=== PATIENT | female | born 1975 | race Caucasian/White ===

== ENCOUNTER 2018-01-26 15:07 | Outpatient (CLI) | payer OTHER ==
[2018-01-26 16:45] LABS: Hemoglobin 15.2 g/dL (12.0-16.0); Mean Corpuscular HGB CONC 33.2 g/dL (32.0-36.0); Mean Corpuscular Hemoglobin 29.1 pg (27.0-31.0); Mean Corpuscular Volume 87.7 fl (81.0-99.0); Mean Platelet Volume 8.2 fL (7.4-10.4); Platelet Count 196 thou/uL (130-400); RBC Distribution Width 12.8 % (11.5-14.5); Red Blood Cell (RBC) Count 5.22 mill/uL (4.20-5.40); White Blood Cell (WBC) Count 8.7 thou/uL (4.8-10.8)
[2018-01-26 17:39] LABS: BHCG - Serum Negative (NEGATIVE); Pregs Control Background? CLEAR/WHITE (CLR/WHITE); Pregs Control Bar Appear? YES (CONTROL BAR)
== END 2018-01-26 15:08 | disposition home or self-care (01) ==
LOC: LABBT 15:07
PROVIDERS: ATTEND Obstetrics & Gynecology
DX: Z01.812 Encounter for preprocedural laboratory examination (principal); D25.9 Leiomyoma of uterus, unspecified; N92.0 Excessive and frequent menstruation with regular cycle
CPT/HCPCS: 84703; 85027; 86850; 86900; 86901

== ENCOUNTER 2018-01-30 07:30 | Day surgery (SDC) | payer OTHER ==
[2018-01-26 15:21] VITALS: BMI 35.1
[2018-01-30] MEDS ORDERED: CEFAZOLIN/Water 2 GM/20 ML SYRINGE ONE (08:07)
[2018-01-30] MEDS ORDERED: Gabapentin 300 MG CAP ONE (08:07)
[2018-01-30] MEDS ORDERED: Famotidine/PF 20 mg/2ml Vial ONE (08:07)
[2018-01-30] MEDS ORDERED: CeleCOXIB 100 MG CAP ONE (08:07)
[2018-01-30] MEDS ORDERED: Midazolam HCl 2 mg/2 ml Vial ONE ×2 (08:44→09:59)
--- NOTE | 2018-01-30 09:23 | HP ---
PREOPERATIVE DIAGNOSIS: Menorrhagia, irregular cycle fibroid uterus, left lower quadrant pain. PROCEDURE TO BE PERFORMED: Robotic assisted total laparoscopic hysterectomy with left salpingo-oopho rectomy and right salpingectomy. HISTORY OF PRESENT ILLNESS: Ms. Carli Vail is a 42-year-old G4, P5, who was referred to me for irregular cycles and heavy periods with known fibroid uterus as well as a history of left lower quad rant pain and recurring left adnexal cyst. The patient gives a long history approximately 6 years si nce the of her twins very heavy periods. The patient wears two pants at a time because the tampon will still soak through every hour. The patient reports that her bleeding is disrupted at wo rk and she has to take many breaks. She has a history of always passing blood clots and feeling very tired on her menses. The patient had an ultrasound prior to her consult with me uterus of approxima tely 12 cm with 2 fibroids in the left adnexal mass noted on the left ovary. The patient has tried m edical management in the past and now presents requesting definitive surgical management. PAST MEDICAL HISTORY: Asthma. CURRENT MEDICATION: Albuterol sulfate inhaler as needed. FAMILY HISTORY: Significant for diabetes and hypertension. SOCIAL HISTORY: Significant for smoking 1-1/2 packs of cigarettes a day for 13 years. PAST SURGICAL HISTORY: Significant for , bilateral tubal ligation, orthopedic surgery on he r hand and knee. GYNECOLOGIC HISTORY: Significant for LMP of 01/02/2018 with heavy flow and painful menstrual cramps. OBSTETRICAL HISTORY: Significant for 6 pregnancies including 3 vaginal deliveries and for twins. REVIEW OF SYSTEMS: Negative except as stated in HPI. PHYSICAL EXAMINATION: VITAL SIGNS: Height 5 feet 9 inches, weight 231 pounds, BMI 34, blood pressure 122/80, pulse 73. GENERAL: No acute distress, alert and oriented. LUNGS: Clear to auscultation bilaterally. HEART: Regular rate and rhythm. ABDOMEN: Obese, soft, nontender, no palpable masses, no hepatosplenomegaly. GENITOURINARY: Normal external female genitalia. Normal urethral meatus, normal vaginal mucosa, no vaginal discharge. Normal cervix. No lesions. Uterus with enlarged axial position. No adnexal mas ses appreciated on exam. Perineum is normal. MUSCULOSKELETAL: normal. NEUROLOGIC: Normal. SKIN: Normal. PSYCHIATRIC: Appropriate affect. LABORATORY DATA: Preop hemoglobin in the office 13.5. DIAGNOSTIC STUDIES: Ultrasound on 11/08/2017 with the uterus measuring 12 x 4.5 cm, endometrial stri pe 1.7 cm. Right ovary not visualized, left ovary 4.5 x 3 x 3 cm. Uterine leiomyoma noted to be dis torting endometrial stripe, approximately 3.5 x 2 cm as well as approximately 3 cm posterior subseros al fibroid. Followup ultrasound with normal appearing ovary on 01/26/2018 in the office. ASSESSMENT AND PLAN: Ms. Carli Vail is a 43-year-old multiparous female with a history of tuba l ligation and menometrorrhagia since the of her last children approximately 6 years ago, who h as failed medical management and now desires definitive surgical management for gynecologic problem. The patient also has discussed with me the option for left salpingo-oophorectomy despite having a no rmal appearing ovary on her most recent ultrasound. The patient has a long history of left lower edwardo drant pain in addition to the menorrhagia. The patient has been scheduled for robotic assisted total laparoscopic hysterectomy with left salpingo-oophorectomy and right salpingectomy on 01/30/2018. Sh e understands the risk and benefits are to include, but not limited to bleeding, infection, damage to intraabdominal organs, possible need for emergent laparotomy, inability to fully diagnose and treat all conditions at the time of surgery, possible need for future and medical and/or surgical managemen t. The patient also understands their inherent risk of anesthesia which will be reviewed with her th e day of surgery by the Anesthesia Team. Her questions have been answered to her satisfaction, and s he desires to proceed with the procedure as listed above.
[2018-01-30] MEDS ORDERED: Lidocaine 2% Jelly 5 ML TUBE ONE (09:59)
[2018-01-30] MEDS ORDERED: Fentanyl 250 MCG/5 ML VIAL ONE (09:59)
[2018-01-30] MEDS ORDERED: Bupivacaine HCl 0.5%/Epinephrine 1:200,000/PF 30 ml Vial ONE (10:05)
[2018-01-30] MEDS ORDERED: Albuterol Sulfate HFA (OR ONLY) ONE (10:30)
[2018-01-30] MEDS ORDERED: PROPOFOL 200 MG/20 ML VIAL ONE (10:31)
[2018-01-30] MEDS ORDERED: Ondansetron HCl/PF 4 MG/2 ML Vial ONE (10:31)
[2018-01-30] MEDS ORDERED: Dexamethasone 20 MG/5 ML VIAL ONE (10:31)
[2018-01-30] MEDS ORDERED: Glycopyrrolate 0.2 MG/ML 5 ML SYRINGE ONE (10:31)
[2018-01-30] MEDS ORDERED: Lidocaine 1% PF 5 ML VIAL ONE (10:31)
[2018-01-30] MEDS ORDERED: PROVENTIL INHALER 6.7 G (200 INHALATIONS) ONE (10:31)
[2018-01-30] MEDS ORDERED: Ropivacaine HCl/PF 750 ML in Premix Bag 1 BAG NERVE BLCK SCH (11:00)
[2018-01-30] MEDS ORDERED: Promethazine HCl 25 MG/ML VIAL IM PRN ×2 (12:56→14:50)
[2018-01-30] MEDS ORDERED: Promethazine HCl 25 MG/ML VIAL SLOW IVP PRN (12:56)
[2018-01-30] MEDS ORDERED: Ondansetron HCl/PF 4 MG/2 ML Vial IVP PRN ×2 (12:56→14:50)
[2018-01-30] MEDS ORDERED: Fentanyl 100 MCG/2 ML VIAL ONE ×2 (13:20→13:52)
--- NOTE | 2018-01-30 13:29 | OP ---
DATE OF PROCEDURE: 01/30/2018 PREOPERATIVE DIAGNOSES: Menorrhagia, dysmenorrhea, left lower quadrant pain. POSTOPERATIVE DIAGNOSES: Menorrhagia, dysmenorrhea, left lower quadrant pain. PROCEDURE PERFORMED: Robotic-assisted total laparoscopic hysterectomy with bilateral salpingectomy a nd left oophorectomy and ON-Q pump placement. SURGEON: Meño Singh D.O. FUEL HANDLER: Alisha Collins M.D. ANESTHESIA: GETA per Dr. Barba. COMPLICATIONS: None. ESTIMATED BLOOD LOSS: 100 mL. INTRAOPERATIVE FINDINGS: 1. Uterus sounds to 8 cm. 2. Bulky uterus, suspect adenomyosis. 3. Small posterior fibroid, approximately 2 cm. 4. Normal-appearing right ovary. 5. Left ovary with small ovarian cyst, most likely follicular. PROCEDURE DETAILS: The patient was taken back to the OR with IV fluids running. Once she was in the OR, anesthesia was obtained and the patient was placed in dorsal supine position. Once the patient was asleep, her legs were placed in low dorsal lithotomy and the abdomen and vagina were prepped and draped in normal fashion for gynecologic laparoscopy. The bladder was drained and a Garcia catheter w as left in place with a Brett syringe on the tip of the Garcia for bladder manipulation as needed dur ing the case. An operative speculum was placed into the vagina. The anterior lip of the cervix was visualized and grasped with a single-tooth tenaculum. The uterus was sounded and noted to be approxi mately 8 cm in depth. A ISA Donna manipulator was assembled with a 4 cm cup and an [address] d into the uterus and vagina in normal fashion for manipulation during the case. The tenaculum was r emoved. The surgeon's gloves were changed and attention was turned to the laparoscopic portion of th e case. Beginning at the supraumbilical fold, anesthesia was placed locally underneath the skin. A 12-mm skin incision was made at the supraumbilical fold. A Veress needle was passed through the skin incision into the peritoneal cavity without difficulty and the abdomen was insufflated. Once the ab domen was insufflated, the Veress needle was removed and a 12-mm trocar was placed into the distended abdomen without difficulty. Laparoscope was then placed through this port. The patient was placed in Trendelenburg with the above findings noted. Next, under direct visualization, a right and left l ower quadrant 8 mm ports and a right upper quadrant 11 mm ports were all placed under direct visualiz ation and without difficulty. Once all 4 ports were placed, the robotic arms were docked at the waqas ent's side and attached to the operative ports. Monopolar scissors and bipolar fenestrated grasper w ere placed under direct visualization into the operating field. Surgery began on the patient's left side. The left ureter was identified and noted to be well away from the left IP ligament. The left IP ligament was then cauterized and transected, freeing the left ovary from the pelvis on the patient 's left side. The left fallopian tube was then dissected away from the left adnexa as well using bip olar cautery and fine dissection with monopolar scissors. Next, the round ligament was cauterized an d divided. It was divided into anterior and posterior leaves. The broad ligament was then dissected down towards the level of the uterine artery and was skeletonized. The bladder was back filled with normal saline and the bladder was noted to be well away from the planned colpotomy site. With the b ladder distended, the bladder flap was created and the bladder was then suctioned down to empty and t he bladder was dissected off layer by layer away from the planned colpotomy site with the bladder fla p created and the bladder dissected away. The uterine arteries on the patient's left side were caute rized. Once this was completed, attention was turned to the contralateral. On the right side, the r ight fallopian tube edge was identified, it was grasped, and removed using both bipolar cautery and m onopolar scissors. The fallopian tube segment was removed and sent for pathologic review. Next, the uteroovarian ligament on the patient's right side was cauterized and transected allowing the right o vary to fall away to the patient's right side. The round ligament was then cauterized, transected, a nd divided into anterior and posterior leaves, was taken down and dissected around the level of the u terine artery on the patient's right side. The bladder flap from the patient's right side was comple davi. The bladder was completely dissected away anteriorly from the planned future colpotomy site. T he uterine artery and accessory vessels on the patient's right side were cauterized and transected. Any bleeding encountered was controlled with bipolar cautery. Next, attention was turned to the colp otomy portion of the procedure. The monopolar scissors were used to create the colpotomy along the R KATE colpotomy cup. The colpotomy was completed circumferentially with bipolar cauterization when nee ded for hemostasis. After the colpotomy was completed, the uterine specimen and left ovary specimen were retracted into the vagina for pneumoperitoneum. The surgical pedicles and vaginal cuff were endoscopy technician iously irrigated and any small areas of bleeding were controlled with bipolar cautery. The vaginal c uff was then closed with Stratafix suture from corner to corner in 2 layers. After the vaginal cuff was closed, the surgical pedicles and vaginal cuff were copiously irrigated and suctioned dry. A lay er of Tisseel was placed over the dissection and pedicles. Once this was completed, the ON-Q cathete r tip was placed under direct visualization in the midline. The catheter tip was directed down towar ds the cul-de-sac and primed and noted to be functioning properly. Next, all the instruments were re moved. The gas was released from the abdomen and the trocars were removed as well. The supraumbilic al fascia was closed with Vicryl suture. All 4 skin incisions were closed with Monocryl suture and d ressed with Dermabond dressing. At the end of the case, the vagina was inspected. The vaginal cuff was noted to be hemostatic. A small 0.5 cm vaginal laceration was noted on the right vaginal sidewal l. This laceration was inherent to the procedure and one suture was placed for hemostasis and restor ation of anatomy. At the end of the case, the patient was cleaned, dried, extubated and taken to the recovery room in good condition.
[2018-01-30] MEDS ORDERED: Simethicone Chewable 80 MG TAB PO PRN (14:50)
[2018-01-30] MEDS ORDERED: Acetaminophen/Codeine 30-300mg Tablet PO PRN (14:50)
[2018-01-30] MEDS ORDERED: Zolpidem Tartrate 5 MG TAB PO PRN (14:50)
[2018-01-30] MEDS ORDERED: Bisacodyl 10 MG SUPP PR PRN (14:50)
[2018-01-30] MEDS ORDERED: diphenhydrAMINE 25 MG CAP PO PRN (14:50)
[2018-01-30] MEDS ORDERED: Morphine 5 MG/ML SYRINGE SLOW IVP PRN (15:19)
[2018-01-30] MEDS: Ibuprofen 800 MG TAB PO SCH (15:37)
[2018-01-30] MEDS: Sodium Chloride 0.9% 1,000 ML IV SCH (15:37)
[2018-01-30] MEDS: Ketorolac Tromethamine 30 MG/ML VIAL IVP SCH (16:29)
[2018-01-30] MEDS: Acetaminophen/Codeine 30-300mg Tablet PO PRN (20:31)
[2018-01-31] MEDS: Ketorolac Tromethamine 30 MG/ML VIAL IVP SCH ×2 (00:10→07:16)
[2018-01-31] MEDS: Acetaminophen/Codeine 30-300mg Tablet PO PRN (00:15)
[2018-01-31] MEDS: Ibuprofen 800 MG TAB PO SCH ×2 (00:40→06:18)
[2018-01-31] MEDS: Sodium Chloride 0.9% 1,000 ML IV SCH ×2 (00:42→08:21)
[2018-01-31 06:04] LABS: Hemoglobin 12.9 g/dL (12.0-16.0); Mean Corpuscular HGB CONC 32.9 g/dL (32.0-36.0); Mean Corpuscular Hemoglobin 29.1 pg (27.0-31.0); Mean Corpuscular Volume 88.5 fl (81.0-99.0); Mean Platelet Volume 8.8 fL (7.4-10.4); Platelet Count 179 thou/uL (130-400); RBC Distribution Width 12.7 % (11.5-14.5); Red Blood Cell (RBC) Count 4.42 mill/uL (4.20-5.40); White Blood Cell (WBC) Count 12.7 thou/uL (4.8-10.8)
[2018-01-31 08:40] VITALS: BP 126/74; TEMP 98.4
--- NOTE | 2018-01-31 10:12 | PDOC.EVN ---
Event Note - Event Note Event Note: POD1 S: tolerating regular diet, voiding without difficulty, no N/V, no bleeding O: Vital Signs (12 hours) Temp Pulse Resp BP Pulse Ox 01/31/18 08:39 98.4 F 63 18 126/74 96 01/31/18 08:00 98.1 F 64 16 01/31/18 04:45 98.1 F 64 16 128/80 95 01/31/18 00:05 98.3 F 76 16 128/69 94 L Weight Weight 231 lb NAD A and O nonlabored breathing abd soft, non distended, inc CDI x 4 ext no swelling or Saurabh's Path pending A/P: POD 1 sp RATLH/BS/LO, doing well, post op goals met. Plan to DC home today.
== END 2018-01-31 10:29 | disposition home or self-care (01) ==
LOC: SDC 07:30 → 3SW 13:41 → EDSTATUS 15:00 → 3SE 23:23 → SDC 01-31 10:29
PROVIDERS: ATTEND Obstetrics & Gynecology
PROC: 0UT94ZZ Resection of Uterus, Percutaneous Endoscopic Approach (ICD-10-PCS; principal; 2018-01-30)
PROC: 8E0W4CZ Robotic Assisted Procedure of Trunk Region, Percutaneous Endoscopic Approach (ICD-10-PCS; principal; 2018-01-30)
PROC: 0UT14ZZ Resection of Left Ovary, Percutaneous Endoscopic Approach (ICD-10-PCS; principal; 2018-01-30)
PROC: 0UT74ZZ Resection of Bilateral Fallopian Tubes, Percutaneous Endoscopic Approach (ICD-10-PCS; principal; 2018-01-30)
DX: D25.2 Subserosal leiomyoma of uterus (principal); N72 Inflammatory disease of cervix uteri; J45.909 Unspecified asthma, uncomplicated; F17.210 Nicotine dependence, cigarettes, uncomplicated; Z98.51 Tubal ligation status
CPT/HCPCS: 36415; 85027; 88307; 96374; 96375; 96376; A4216; J0670; J1100; J1885; J2001; J2250; J2405; J2704; J2795; J3010; S0028

== ENCOUNTER 2018-08-03 16:10 | Outpatient (CLI) | payer OTHER ==
[2018-08-03 16:31] LABS: #Eosinphils 0.1 thou/uL (0.0-0.7); #Lymphocytes 1.6 thou/uL (1.20-3.40); #Monocytes 0.4 thou/uL (0.11-0.59); #Neutrophils 5.9 thou/uL (1.40-6.50); %Basophils 0.6 % (0.0-1.0); %Eosinophils 1.8 % (0.0-10.0); %Lymphocytes 19.6 % (21.0-51.0); %Monocytes 4.5 % (0.0-10.0); %Neutrophils 73.5 % (42.0-75.0); Hemoglobin 14.6 g/dL (12.0-16.0); Mean Corpuscular HGB CONC 33.2 g/dL (32.0-36.0); Mean Corpuscular Hemoglobin 28.9 pg (27.0-31.0); Mean Corpuscular Volume 86.9 fL (78.0-98.0); Mean Platelet Volume 8.7 fL (7.4-10.4); Platelet Count 191 thou/uL (130-400); RBC Distribution Width 12.4 % (11.5-14.5); Red Blood Cell (RBC) Count 5.05 mill/uL (4.20-5.40)
[2018-08-03 16:48] LABS: Anion Gap 14 mmol/L (10-20); BUN (Urea Nitrogen) 13 mg/dL (7.0-18.7); Calc. Creatinine Clearance 0 mL/min (70-130); Calcium 9.8 mg/dL (7.8-10.44); Carbon Dioxide 24 mmol/L (22-29); Chloride 105 mmol/L (98-107); Estimated GFR-MDRD 89; Glucose 91 mg/dL (70-105); Sodium 139 mmol/L (136-145)
--- NOTE | 2018-08-03 22:45 | HP ---
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 She does heavy lifting at work. They have tried to keep her from working until she repairs this, but she insisted that she has five children, three at home. She is single. ALLERGIES: NONE. SOCIAL HISTORY: Tobacco pack per day. Alcohol, none. MEDICATIONS: Naproxen p.r.n. PAST SURGICAL HISTORY: Hysterectomy, unilateral salpingo-oophorectomy leaving her left ovary, left knee ACL repair, right hand surgery, C-sections for twins. PAST MEDICAL HISTORY: Noncontributory. PHYSICAL EXAMINATION: VITAL SIGNS: Weight 232 pounds, height 68 inches, blood pressure 128/55, pulse 70, temperature 97.7 degrees. HEAD, EARS, EYES, NOSE, AND THROAT: Unremarkable. Sclerae nonicteric. LUNGS: Clear to auscultation. CARDIAC: Regular rate and rhythm. No murmur or gallop. ABDOMEN: Soft, obese, nontender. Umbilical hernia reducible through a smaller defect. EXTREMITIES: Unremarkable. SKIN: Normal, nonjaundiced. NEUROLOGIC: Intact. EXTREMITIES: Well perfused. No edema. ASSESSMENT: Umbilical hernia. PLAN: Robot laparoscopic mesh repair as an outpatient. She understands the risks, benefits, and consents. Job ID: [id number]
== END 2018-08-03 16:11 | disposition home or self-care (01) ==
LOC: LABBT 16:10
PROVIDERS: ATTEND Specialist
DX: Z01.812 Encounter for preprocedural laboratory examination (principal); K42.9 Umbilical hernia without obstruction or gangrene
CPT/HCPCS: 80048; 85025

== ENCOUNTER 2018-08-09 11:03 | Day surgery (SDC) | payer OTHER ==
[2018-08-03 16:28] VITALS: BMI 35.2
[2018-08-09] MEDS ORDERED: Bupivacaine/Epinephrine 0.25% 30 ML VIAL ONE (13:58)
[2018-08-09] MEDS ORDERED: Ketorolac Tromethamine 30 MG/ML VIAL ONE (14:25)
[2018-08-09] MEDS ORDERED: CEFAZOLIN 2 GM/50 ML BAG ONE (14:25)
[2018-08-09] MEDS ORDERED: Scopolamine 1.5 mg/72 hour Patch ONE (14:26)
[2018-08-09] MEDS ORDERED: Fentanyl 100 MCG/2 ML VIAL ONE ×4 (15:59→17:52)
[2018-08-09] MEDS ORDERED: Meperidine HCl/PF 25 MG/ML VIAL ONE (17:38)
[2018-08-09] MEDS ORDERED: Promethazine HCl 25 MG/ML VIAL ONE (17:47)
[2018-08-09] MEDS ORDERED: Ondansetron PF 4 MG/2 ML Vial ONE (18:16)
[2018-08-09] MEDS ORDERED: Dexamethasone 20 MG/5 ML VIAL ONE (18:16)
[2018-08-09] MEDS ORDERED: PROPOFOL 200 MG/20 ML VIAL ONE (18:16)
[2018-08-09] MEDS ORDERED: Lidocaine 1% PF 5 ML VIAL ONE (18:16)
[2018-08-09] MEDS ORDERED: Glycopyrrolate 0.2 MG/ML 5 ML SYRINGE ONE (18:16)
[2018-08-09] MEDS ORDERED: HYDROcodone/Acetaminophen 5/325 mg Tablet ONE (18:59)
--- NOTE | 2018-08-10 00:09 | OP ---
DATE OF PROCEDURE: 08/09/2018 PREOPERATIVE DIAGNOSIS: Umbilical hernia, symptomatic. POSTOPERATIVE DIAGNOSIS: Umbilical hernia, symptomatic. PROCEDURES PERFORMED: Robot laparoscopic repair of fascial defect with 9 cm round Ventralight mesh, reinforcement of closure. ANESTHESIA: General with local 0.5% Marcaine with epinephrine 30 mL. DESCRIPTION OF PROCEDURE: The patient was taken to the operating room, where under general anesthesia without a Garcia catheter, abdomen was prepared with ChloraPrep and draped in routine fashion. Bilateral far lateral subcostal incision was made and pneumoperitoneum to 15 mmHg was obtained with Veress needle, replaced with an 8 mm port, placed in the contralateral port under laparoscopic visualization. Left subxiphoid incision was made and an 11 mm port was placed with balloon inflated on the port and with a laparoscope robot was inserted, after robot was docked, and robot repair of umbilical hernia undertaken reducing preperitoneal fat, excising it with hot cautery, and scissors. Once this was repaired, the falciform ligament was taken down with robot scissors using cautery for hemostasis. Pneumoperitoneum was reduced to 9 mmHg and mesh 9 cm round, trim from an 11 mm round segment and marked and placed intra-abdominally and secured to the abdominal wall after closing the fascial defect with continuous suture #1 PDS V-Loc. Mesh was secured with circumferential 2-0 PDS V-Loc. Once this was secured, all needles were removed and pneumoperitoneum reduced. All instruments were removed, and all skin incisions were approximated with interrupted subdermal 4-0 Monocryl, and [place] glue applied. Job ID: [id number]
== END 2018-08-09 19:35 | disposition home or self-care (01) ==
LOC: SDC 11:03
PROVIDERS: ATTEND Specialist
PROC: 8E0W4CZ Robotic Assisted Procedure of Trunk Region, Percutaneous Endoscopic Approach (ICD-10-PCS; principal; 2018-08-09)
PROC: 0WUF4JZ Supplement Abdominal Wall with Synthetic Substitute, Percutaneous Endoscopic Approach (ICD-10-PCS; principal; 2018-08-09)
DX: K42.9 Umbilical hernia without obstruction or gangrene (principal); M19.90 Unspecified osteoarthritis, unspecified site; F17.210 Nicotine dependence, cigarettes, uncomplicated
CPT/HCPCS: 96374; C1781; J0131; J1100; J1885; J2001; J2175; J2405; J2550; J2704; J3010

== ENCOUNTER 2019-03-10 18:38 | Emergency (ER) | payer OTHER ==
[2019-03-10] MEDS ORDERED: Ketorolac Tromethamine 30 MG/ML VIAL ONE (19:16)
[2019-03-10] MEDS ORDERED: Ondansetron PF 4 MG/2 ML Vial ONE (19:16)
[2019-03-10 19:21] LABS: #Basophils 0.1 thou/uL (0.0-0.2); #Eosinphils 0.2 thou/uL (0.0-0.7); #Lymphocytes 2.2 thou/uL (1.20-3.40); #Monocytes 0.5 thou/uL (0.11-0.59); #Neutrophils 6.3 thou/uL (1.40-6.50); %Basophils 0.8 % (0.0-1.0); %Eosinophils 1.7 % (0.0-10.0); %Lymphocytes 23.5 % (21.0-51.0); %Monocytes 5.2 % (0.0-10.0); %Neutrophils 68.8 % (42.0-75.0); Hemoglobin 15.5 g/dL (12.0-16.0); Mean Corpuscular HGB CONC 34.2 g/dL (32.0-36.0); Mean Corpuscular Hemoglobin 29.3 pg (27.0-31.0); Mean Corpuscular Volume 85.7 fL (78.0-98.0); Mean Platelet Volume 8.5 fL (7.4-10.4); Platelet Count 203 thou/uL (130-400); RBC Distribution Width 12.4 % (11.5-14.5); Red Blood Cell (RBC) Count 5.27 mill/uL (4.20-5.40); White Blood Cell (WBC) Count 9.2 thou/uL (4.8-10.8)
[2019-03-10 19:33] LABS: Bacteria/HPF None Seen HPF (None Seen); Bilirubin Negative (Negative); Blood, Urine Negative (Negative); Clarity Clear (Clear); Glucose, Urine (Dipstick) Normal (Negative); Leukocyte 25 Leu/uL (Negative); Mucous/LPF 1+ LPF (<2+); Nitrite Negative (Negative); Protein, Urine (Dipstick) Negative (Neg-Trace); RBC/HPF 0-3 HPF (0-3); Squamous Epithelial 0-3 HPF (0-3); Urobilinogen Normal mg/dL (Less than 2)
[2019-03-10 19:42] LABS: ALT (SGPT) 12 U/L (8-55); AST (SGOT) 14 U/L (5-34); Albumin 4.5 g/dL (3.5-5.0); Alkaline Phosphatase 63 U/L (40-150); Anion Gap 14 mmol/L (10-20); BUN (Urea Nitrogen) 8 mg/dL (7.0-18.7); Bilirubin, Total 0.6 mg/dL (0.2-1.2); Calc. Creatinine Clearance 0 mL/min (70-130); Calcium 9.9 mg/dL (7.8-10.44); Carbon Dioxide 21 mmol/L (22-29); Chloride 103 mmol/L (98-107); Estimated GFR-MDRD 87; Globulin 2.9 g/dL (2.4-3.5); Glucose 91 mg/dL (70-105); Potassium 3.8 mmol/L (3.5-5.1); Protein, Total 7.4 g/dL (6.0-8.3); Sodium 134 mmol/L (136-145)
[2019-03-10] MEDS ORDERED: Morphine 4 MG/ML VIAL ONE (19:57)
--- NOTE | 2019-03-10 21:22 | RAD ---
KUB: 03/10/19 INDICATION: Left sided flank pain. COMPARISON: Prior CT of the abdomen and pelvis without contrast dated 03/06/19. FINDINGS: There is bilateral nonobstructing renal calculi again noted. The previously seen proximal left ureter al calculus is not definitely demonstrated on the current examination but may be obscured by overlyin g bowel gas. Bowel gas pattern is unobstructed. Small phleboliths within the lower pelvis are stable. No acute osseous abnormality is evident. IMPRESSION: 1. Stable bilateral nephrolithiasis. 2. Previously seen left proximal ureteral calculus is not definitely identified current radiogra phic evaluation and may be related to interval passage; however, overlying bowel gas can obscure smal l stones. If the patient is having continued left flank pain, further evaluation with a CT of the abd omen utilizing renal calculus protocol is recommended. POS: HERMINIA
== END 2019-03-10 22:00 | disposition home or self-care (01) ==
LOC: ERS 18:38
DX: N13.2 Hydronephrosis with renal and ureteral calculous obstruction (principal); F17.210 Nicotine dependence, cigarettes, uncomplicated
CPT/HCPCS: 36415; 74018; 80053; 81003; 81015; 85025; 87077; 87086; 96361; 96374; 96375; J1885; J2270; J2405

== ENCOUNTER 2019-03-25 01:05 | Inpatient (IN) | payer OTHER ==
[2019-03-25] MEDS ORDERED: Morphine 2 MG/ML SYRINGE IVP PRN (01:54)
[2019-03-25] MEDS ORDERED: Tamsulosin HCl 0.4 MG CAP PO SCH ×2 (02:15→21:00)
[2019-03-25] MEDS ORDERED: HYDROcodone/Acetaminophen 5/325 mg Tablet ONE (02:26)
[2019-03-25 02:55] VITALS: BMI 35.1
[2019-03-25] MEDS: Sodium Chloride 0.9% 1,000 ML IV SCH ×4 (03:02→20:51)
[2019-03-25] MEDS ORDERED: Ondansetron ODT 4 MG TAB PO PRN (09:40)
[2019-03-25] MEDS ORDERED: Bisacodyl 10 MG SUPP PR PRN (09:40)
[2019-03-25] MEDS ORDERED: Calcium Carbonate 500 MG ChewTAB PO PRN (09:40)
[2019-03-25] MEDS ORDERED: Acetaminophen 325 MG TAB PO PRN (09:40)
[2019-03-25] MEDS ORDERED: Ketorolac Tromethamine 30 MG/ML VIAL IVP PRN (09:40)
[2019-03-25] MEDS ORDERED: Ondansetron PF 4 MG/2 ML Vial IVP PRN (09:40)
[2019-03-25] MEDS ORDERED: Nicotine 14 MG PATCH TD PRN (09:48)
--- NOTE | 2019-03-25 10:31 | HP ---
PRIMARY CARE PHYSICIAN: Dr. Stephanie Monzon. CHIEF COMPLAINT: Left flank pain. HISTORY OF PRESENT ILLNESS: The patient is a 44-year-old female with renal calculi in the past, presented to the emergency room with above complaints. Three weeks ago, the patient started having left flank pain that was sharp, [id number] in intensity associated with nausea. She was seen at the emergency room and was found to have 5 to 6 mm calculus in the proximal left ureter with mild left hydronephrosis. She also had bilateral nonobstructing calculi in the upper collecting structure of both the kidneys with medullary sponge kidney. She was sent home on NSAIDs. Five days later, she was seen at this facility for similar complaint. Tylenol No. 3 and Flomax were added at this time. Over the last 1 week, the patient continues to have significant discomfort. The pain got worse, for which she presented to the emergency room last night. She denies any vomiting, fever, or urinary complaints. She had a small amount of blood in the urine intermittently. She has also lost her appetite. PAST MEDICAL HISTORY: 1. History of renal calculi. 2. Degenerative joint disease, mainly in the left knee. PAST SURGICAL HISTORY: 1. Umbilical hernia repair. 2. Hysterectomy. 3. section. 4. Left knee arthroscopic surgery. 5. Right hand skin mass removal. 6. Lithotripsy, 10 to 12 years ago. 7. Cystoscopy with stent placement, 7 to 8 years ago. ALLERGIES: NO KNOWN DRUG ALLERGIES. CURRENT HOME MEDICATIONS: The patient is on Tylenol No. 3, naproxen, and Flomax, which were started recently. She also takes naproxen on an as needed basis for left knee degenerative joint disease. SOCIAL HISTORY: The patient smokes up to half pack a day for last 20 years. She denies any alcohol or drug use. FAMILY HISTORY: Mother with diabetes. Grandmother with lung cancer. REVIEW OF SYSTEMS: All other review of systems was reviewed and were found negative. PHYSICAL EXAMINATION: VITAL SIGNS: Temperature 97.7, respirations 18, pulse rate of 90, blood pressure of 127/79, O2 saturation of 97% on room air. GENERAL: A 44-year-old female, in mild distress due to left flank pain. HEENT: Head, atraumatic and normocephalic. Sclerae are anicteric. Moist mucous membranes. No oral lesion. NECK: Supple. No JVD. No carotid bruit. LUNGS: Clear to auscultation bilaterally. No wheezing, rales, or rhonchi. HEART: S1 and S2 present. Regular rate and rhythm. ABDOMEN: Soft. Bowel sounds are present. There is significant tenderness in the left flank. No rebound or guarding. EXTREMITIES: No edema or calf tenderness. NEUROLOGIC: Grossly nonfocal. Moves all 4 extremities. PSYCHIATRY: Alert, awake, and oriented x3. SKIN: Warm and dry. LYMPH NODES: No palpable lymph nodes in the neck. PERIPHERAL VASCULAR: Radial pulses palpable bilaterally. MUSCULOSKELETAL: No joint swelling or tenderness. LABORATORY FINDINGS: WBC 7.8, hemoglobin 14, hematocrit 42.7, platelet 194. Sodium 141, potassium 3.8, chloride 105, bicarbonate 23, BUN 8, creatinine 0.75. Urinalysis showed 7 to 10 wbc's with 1+ bacteria. test was negative. IMAGING STUDIES: CT scan of the abdomen and pelvis by my review showed 5 to 6 mm calculus at the left ureteropelvic junction with mild left hydronephrosis along with medullary sponge kidney. IMPRESSION: 1. Left flank pain secondary to left ureteropelvic junction calculi with mild left hydronephrosis. 2. Suspected medullary sponge kidney. Primary care physician advised to follow. 3. Degenerative joint disease, mainly in the left knee. 4. History of renal calculi in the past. 5. Chronic kidney disease stage 2. 6. Hematuria secondary to #1. 7. Obesity with a BMI of 35.1. 8. Tobacco dependence. PLAN: The patient will be monitored on the medical floor. We will continue IV fluids along with Flomax. We will add Toradol and morphine as needed. Protonix will be added. Tobacco cessation was emphasized. The patient will be kept n.p.o. Urology will be consulted. We will strain the urine. We will also add urine culture. The patient was advised to follow up with primary care physician regarding medullary sponge kidney. Job ID: [id number]
--- NOTE | 2019-03-25 12:29 | CON ---
DATE OF CONSULTATION: 03/25/2019 REASON FOR CONSULTATION: Left hydronephrosis, history of recurrent kidney stone , failed outpatient treatment. HISTORY OF PRESENT ILLNESS: Ms. Vail is a pleasant 44-year-old female with history of tobacco abuse, history of recurrent kidney stone, multiple ER visits due to left flank pain. The patient presented last night due to nausea and emesis, flank pain 9/10, managed with Tylenol No. 3 as an outpatient. The patient's PCP is Dr. Monzon. She denies history of gross hematuria, dysuria, fever, or malaise. Does relate treatment of kidney stones in [place] and [place]. Does not recall laterally, however, had about 2 kidney stone lithotripsies in the past near 2008. She has also passed multiple kidney stones. Denies prior stone metabolic panel workup. Currently, she is resting comfortably, however, presented due to intractable flank pain rated 9/10 on the pain scale, vital signs stable. Urinalysis was collected demonstrating 1+ bacteria; however, this is a contaminated specimen. CT which I reviewed myself demonstrating bilateral multiple stone burden consistent with nephrocalcinosis, left 6 x 9 mm proximal ureteral stone just distal to the UPJ, left lower pole 9 to 10 mm stone with multiple bilateral renal calcific density per my review at the level of the renal papilla. The patient informed regarding CT findings, n.p.o. and desires to proceed with cysto left stent. PAST MEDICAL HISTORY: Recurrent kidney stones, arthritis, and umbilical hernia. PAST SURGICAL HISTORY: Include left knee replaced at age 28, twins at age 37, excision of hand lesion, cartilage removed at age 38, robotic-assisted total hysterectomy at age 43 [address] Singh, and robotic umbilical hernia repair with mesh by Dr. Monique in July 2018. FAMILY HISTORY: Positive for diabetes, lives with her children. She is a single mother, has a significant other. 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 SOCIAL HISTORY: A 10 pack-year smoking history, has 5 children. MEDICATIONS: At home include: 1. Naproxen. 2. Tylenol No. 3. 3. Flomax. ALLERGIES: NO KNOWN DRUG ALLERGIES. REVIEW OF SYSTEMS: Ten-point review of systems as above, otherwise noncontributory. PHYSICAL EXAMINATION: VITAL SIGNS: Her vital signs in the emergency room as records review are stable. She is afebrile. She is currently 98, 72, 16, 94%, and 116/78. I's and O's; 750 of urine output. GENERAL: The patient appears to be in no acute distress. HEENT: Grossly unremarkable. HEART: Regular rate. LUNGS: Clear. ABDOMEN: Soft. No rigidity. No rebound. Subjective discomfort in the left flank. EXTREMITIES: No cyanosis, clubbing, or edema. PSYCHIATRIC: Appears to be appropriate. Affect normal. NEUROLOGIC: No gross focal deficits appreciated. Pertinent imaging and lab which I reviewed myself. She has multiple CTs dating back in October 2015, had about [address] scan and most recent March 24, 2019. I reviewed the CT myself demonstrating stone nidus seen back in 2015 with some increase in stone burden, CT scan March 06, 2019. Bilateral nephrolithiasis, 6 mm left proximal ureteral stone with mild hydronephrosis. CT demonstrating likely nephrocalcinosis with extensive bilateral renal calculi. CT of the abdomen and pelvis stone protocol on March 24, 2019. Unchanged left UPJ stone measuring 6 mm. Per my review, this measures 6 x 9 mm in craniocaudal dimension with Hounsfield unit over 1000. Bilateral multiple renal calculi, most of which are punctate 3 to 4 mm in size. Most of these in the right kidney are papilla based, largest about 4 to 5 mm. Similarly, there is multiple renal papilla calcific density, however, in the left lower pole, the stone moiety appears to be two stones measuring in total dimensions about 9 x 10 mm. Mild left hydronephrosis is appreciated. Again, consistent with nephrocalcinosis as most of her stones are associated with renal papilla based thus far. PERTINENT LABORATORY AND IMAGING DATA: White count 7.8, hemoglobin 14, platelet 194. Creatinine 0.75, calcium is 9.5, within normal limits. UA is contaminated with 1+ bacteria, 7 to 10 epithelials, no leukocytes, no nitrites, 11 to 20 rbc' s, 7 to 10 wbc's. Urine pH is 6.5. IMPRESSION AND PLAN: 1. Ms. Vail is a pleasant 44-year-old female with history of tobacco abuse. 2. Recurrent kidney stone with prior lithotripsy x2 out of region, presents with persistent left flank pain, failed outpatient treatment. I reviewed the CT multiple myself, I informed the patient regarding CT, lab results. Her calcium is normal , so I do not suspect hyperparathyroidism; however, I informed the patient after convalescence from current surgical intervention and treatment of her stone, the stone metabolic panel will be obtained. Her urine pH is 6.5; therefore, low suspicion for renal tubular acidosis, but certainly metabolic panel at a later date will be performed. Nevertheless, she presents with recurrent pain and failed outpatient treatment, we recommend cysto and left retrograde stent. Elective treatment of her ureteral calculi with extracorporeal shock wave lithotripsy versus ureteroscopy was reviewed with the patient in detail. As her stone Hounsfield unit is greater than 1000 very dense in nature, ureteroscopy, laser lithotripsy be prudent and moreover, I can treat her left UPJ and her lower pole stone concomitantly. Risks and complications of ureteral stent reviewed including bleeding, pain, infection, sepsis, injury to adjacent organs. She is n.p.o. Straight cath, UA, C and S are to be obtained. Antibiotic prophylaxis will be started after collection of her UA, C and S. Anticipate the patient will be in-house until repeat urine culture has finalized for outpatient dispo. Job ID: [id number] MTDD
[2019-03-25] MEDS ORDERED: Iothalamate Meglumine 60% 50 ML VIAL FS ONE (12:30)
[2019-03-25] MEDS ORDERED: Fentanyl 100 MCG/2 ML VIAL ONE ×4 (12:46→14:07)
[2019-03-25 12:49] LABS: Bacteria/HPF None Seen HPF (None Seen); Bilirubin Negative (Negative); Blood, Urine Negative (Negative); Clarity Clear (Clear); Glucose, Urine (Dipstick) Normal (Negative); Leukocyte Negative Leu/uL (Negative); Nitrite Negative (Negative); Protein, Urine (Dipstick) Negative (Neg-Trace); RBC/HPF 0-3 HPF (0-3); Squamous Epithelial 0-3 HPF (0-3); Urobilinogen Normal mg/dL (Less than 2); WBC/HPF 0-3 HPF (0-3)
[2019-03-25] MEDS ORDERED: Phenazopyridine HCl 97.5 MG TABLET PO PRN (13:19)
[2019-03-25] MEDS ORDERED: HYDROcodone/Acetaminophen 5/325 mg Tablet PO PRN (13:19)
[2019-03-25] MEDS ORDERED: Oxybutynin 5 MG TAB PO PRN (13:19)
[2019-03-25] MEDS ORDERED: Promethazine HCl 25 MG/ML VIAL ONE (13:35)
[2019-03-25] MEDS ORDERED: Promethazine HCl 25 MG/ML VIAL IM/IV PRN (13:54)
[2019-03-25] MEDS ORDERED: PACU-Morphine 4MG/ML VIAL SLOW IVP PRN (13:54)
[2019-03-25] MEDS ORDERED: Ondansetron HCl/PF 4 MG/2 ML Vial IVP PRN (13:54)
[2019-03-25] MEDS ORDERED: Non-Formulary Medication 1 EACH PO PRN (13:54)
[2019-03-25] MEDS ORDERED: Morphine Sulfate 2 MG/ML SYRINGE SLOW IVP PRN (13:54)
--- NOTE | 2019-03-25 14:24 | RAD ---
LEFT RETROGRADE UROGRAM: HISTORY: Partially obstructing left UPJ calculus. COMPARISON: CT abdomen on 03/24/2019. FINDINGS: Five intraoperative fluoroscopic images of the abdomen are obtained. Medical Staff Services Coordinator image demonstrates calcif ication overlying the inferior pole left renal collecting system as well as the distal calcification seen just medial to the left renal shadow which may represent patient's known ureteral calculus in th e region of the UPJ. Subsequent retrograde urogram was performed demonstrating filling defect within the renal pelvis related to the calculus with additional filling defects within the proximal right u reter which could be related to gas bubbles. Subsequent imaging demonstrates guidewire in place with the final image demonstrating a left ureteral stent in place with the proximal portion overlying the upper pole left renal collecting system and distal portion overlying the urinary bladder with decomp ression of the collecting system. Correlation with intraoperative findings is recommended. POS: KENDELL
--- NOTE | 2019-03-25 15:09 | OP ---
DATE OF PROCEDURE: 03/25/2019 PREOPERATIVE DIAGNOSES: 1. History of recurrent kidney stone, failed outpatient medical therapy expulsion for left proximal ureteral calculi measuring 6 x 9 mm. 2. Bilateral nephrocalcinosis. 3. Left lower pole 9 to 10 mm renal calculi, Hounsfield unit over 1000. POSTOPERATIVE DIAGNOSES: 1. History of recurrent kidney stone, failed outpatient medical therapy expulsion for left proximal ureteral calculi measuring 6 x 9 mm. 2. Bilateral nephrocalcinosis. 3. Left lower pole 9 to 10 mm renal calculi, Hounsfield unit over 1000. PROCEDURES PERFORMED: Cystoscopy, left retrograde pyelogram, and 6 x 26 double- J ureteral stent placement with distal tail in-situ. ANESTHESIA: LMA. COMPLICATIONS: None apparent. DISPOSITION: To recovery room in stable condition. INTRAOPERATIVE FINDINGS: 1. Retrograde pyelogram demonstrating a filling defect in the L3 ureter consistent with proximal ureteral calculi, bilateral radial opaque density consistent with renal lithiasis. 2. Grade 3 cystocele. INDICATIONS FOR PROCEDURE AND HISTORY: Ms. Vail is a pleasant 44-year-old female, who has history of recurrent kidney stone previously underwent laser lithotripsy and ESWL in the remote past at an outside state, presents today with left flank pain. She presented to the ER in the past with CT few weeks ago demonstrating similar stone due to recurrent ER presentation, desires to proceed with ureteral stent. As urine culture is not finalized, she was informed regarding elective treatment of ureteral calculi at a later date. She desires to proceed with ureteral stent. Risks, complications, and indications reviewed including, but not limited to, bleeding, pain, infection, injury to adjacent organs, ureteral, bladder, or kidney injury. DESCRIPTION OF PROCEDURE: After an informed consent was signed, the patient was taken to the operating room, placed in a dorsal lithotomy position with the genital area prepped and draped in the usual surgical sterile fashion. Broad-spectrum antibiotics were provided. Bilateral ROSA ELENA and SCDs were placed. A 21-Lebanese cystoscope was utilized for cystoscopy, which demonstrated normal bladder mucosa. She does have an incidental grade 2 to 3 cystocele. Therefore, the trigone was deviated. The UOs identified and without significant issues with a 30-degree lens. An open-ended catheter was utilized to intubate the left UO and a retrograde pyelogram was performed demonstrating mild hydronephrosis with a proximal ureteral stone at the level of L3 as a filling defect. A 0.35 Sensor wire was passed into the left upper pole with ease. Subsequently, a 6 x 26 double-J ureteral stent was passed without significant issues. Distal tail was left in-situ. Wire was then subsequently removed demonstrating good coil in the kidney in the upper pole and adequate redundancy in the bladder. Bladder completely emptied. She will be observed overnight, if UA culture is not significant of concern, we will discharge with prophylactic antibiotics and elective followup with me for ureteroscopy, laser lithotripsy versus ESWL at a later date. Job ID: [id number] [facility]
[2019-03-25] MEDS: HYDROcodone/Acetaminophen 5/325 mg Tablet PO PRN (18:06)
[2019-03-26] MEDS: HYDROcodone/Acetaminophen 5/325 mg Tablet PO PRN (03:10)
[2019-03-26 05:08] LABS: #Basophils 0.1 thou/uL (0.0-0.2); #Eosinphils 0.2 thou/uL (0.0-0.7); #Lymphocytes 1.7 thou/uL (1.20-3.40); #Monocytes 0.3 thou/uL (0.11-0.59); #Neutrophils 3.5 thou/uL (1.40-6.50); %Basophils 1.1 % (0.0-1.0); %Eosinophils 2.7 % (0.0-10.0); %Lymphocytes 29.2 % (21.0-51.0); %Monocytes 5.6 % (0.0-10.0); %Neutrophils 61.4 % (42.0-75.0); Hemoglobin 12.7 g/dL (12.0-16.0); Mean Corpuscular HGB CONC 32.2 g/dL (32.0-36.0); Mean Corpuscular Hemoglobin 28.1 pg (27.0-31.0); Mean Corpuscular Volume 87.3 fL (78.0-98.0); Mean Platelet Volume 8.6 fL (7.4-10.4); Platelet Count 168 thou/uL (130-400); RBC Distribution Width 12.4 % (11.5-14.5); Red Blood Cell (RBC) Count 4.52 mill/uL (4.20-5.40); White Blood Cell (WBC) Count 5.8 thou/uL (4.8-10.8)
[2019-03-26 05:17] LABS: ALT (SGPT) 8 U/L (8-55); AST (SGOT) 9 U/L (5-34); Albumin 3.4 g/dL (3.5-5.0); Alkaline Phosphatase 51 U/L (40-150); Anion Gap 9 mmol/L (10-20); BUN (Urea Nitrogen) 8 mg/dL (7.0-18.7); Bilirubin, Total 0.2 mg/dL (0.2-1.2); Calc. Creatinine Clearance 181 mL/min (70-130); Calcium 8.4 mg/dL (7.8-10.44); Carbon Dioxide 26 mmol/L (22-29); Chloride 106 mmol/L (98-107); Estimated GFR-MDRD Greater than 90; Globulin 1.9 g/dL (2.4-3.5); Glucose 129 mg/dL (70-105); Magnesium 1.8 mg/dL (1.6-2.6); Potassium 3.5 mmol/L (3.5-5.1); Protein, Total 5.3 g/dL (6.0-8.3); Sodium 137 mmol/L (136-145)
--- NOTE | 2019-03-26 08:13 | PRG ---
DATE OF SERVICE: 03/26/2019 SUBJECTIVE: The patient is resting, states the pain is improved. She denies nausea, vomiting, fever, or chills. OBJECTIVE: VITAL SIGNS: Stable. Afebrile. ABDOMEN: Soft, nontender, nondistended. No CVA tenderness. EXTREMITIES: No cyanosis, clubbing, or edema. LABORATORY DATA: Urine culture from the ER demonstrates Strep agalactiae, it was a contaminated specimen. She was given Rocephin in the ER. A repeat straight cath UA, C and S is negative. Culture pending. IMPRESSION AND PLAN: 1. A 44-year-old female with history of recurrent renal lithiasis, presented with intractable left flank pain. Failed outpatient management of a proximal left ureteral calculi. 2. Bilateral multiple nephrocalcinosis. 3. Left lower pole stone nidus 9 to 10 mm postop day #1, status post cysto, left retrograde stent. The patient clinically doing well, I recommend discharge the patient with 7 days of empiric antibiotic therapy, VESIcare for bladder spasm, Colace p.r.n., tramadol for discomfort. Appointment for in chart for April 03. Plan ureteroscopy, laser lithotripsy on April 11, the patient informed. My business card has been handed to the patient. The patient is aware of appointment with me on April 03. Job ID: [id number]
[2019-03-26 11:21] VITALS: BP 120/72; TEMP 98.3
--- NOTE | 2019-03-26 15:56 | DIS ---
DATE OF ADMISSION: 03/25/2019 DATE OF DISCHARGE: 03/26/2019 PRIMARY CARE PROVIDER: Dr. Stephanie Monzon. DISCHARGE DIAGNOSES: 1. Recurrent nephrolithiasis. 2. Left flank pain. CONSULTATIONS DURING THIS HOSPITALIZATION: Urology, Dr. Bell CONDITION OF THE PATIENT ON THE DAY OF DISCHARGE: Stable. I assessed Ms. Vail on the day of discharge. She denies any chest pain or shortness of breath. Vital signs are stable. S1 and S2 are heard, regular. Lungs are clear to auscultation bilaterally. DISCHARGE MEDICATIONS: 1. Ciprofloxacin 500 mg 2 times a day for 1 week. 2. Colace 100 mg daily. 3. Phenazopyridine 195 mg every 8 hours as needed. 4. VESIcare 5 mg daily. 5. Tramadol 100 mg 4 times a day as needed. FOLLOWUP APPOINTMENTS: The patient is advised to follow up with Dr. Bell on April 03, 2019, at 11:30 a.m. HOSPITAL COURSE: Ms. Vail is a pleasant 44-year-old lady, who was admitted to [facility] on March 25, 2019 for left flank pain. Please refer to Dr. Soto's History and Physical note dated March 25, 2019, for further details. She was seen by Urology Service. She underwent cystoscopy, left retrograde pyelogram, and a 6 x 26 double-J ureteral stent placement with distal tail in- situ. She improved clinically. She has been cleared for discharge by Urology Service. She is being discharged home on empiric antibiotics. Many thanks for allowing me to participate in your patient's care. Please feel free to contact me with any questions or concerns. DISCHARGE DESTINATION: Home. TIME SPENT: Total amount of time spent coordinating this discharge: 20 minutes. Job ID: [id number] MTDD
--- NOTE | 2019-03-26 17:04 | EKG ---
Test Reason : Blood Pressure : / mmHG Vent. Rate : 059 BPM Atrial Rate : 059 BPM P-R Int : 206 ms QRS Dur : 082 ms QT Int : 440 ms P-R-T Axes : 018 015 027 degrees QTc Int : 435 ms Sinus bradycardia Cannot rule out Anterior infarct , age undetermined Abnormal ECG No previous ECGs available Confirmed by SHARON DOUGLASS, DR. Maciel ([id number]) on 03/26/2019 5:04:39 PM Referred By: Confirmed By:DR. Raheem HERRERA MD
== END 2019-03-26 15:04 | disposition home or self-care (01) | DRG 661 ==
LOC: ERS 01:05 → SURG B 01:34
PROVIDERS: ADMIT Hospitalist; ATTEND Hospitalist
PROC: 0T778DZ Dilation of Left Ureter with Intraluminal Device, Via Natural or Artificial Opening Endoscopic (ICD-10-PCS; principal; 2019-03-25)
PROC: BT1FYZZ Fluoroscopy of Left Kidney, Ureter and Bladder using Other Contrast (ICD-10-PCS; 2019-03-25)
DX: N13.2 Hydronephrosis with renal and ureteral calculous obstruction (principal); M17.12 Unilateral primary osteoarthritis, left knee; F17.210 Nicotine dependence, cigarettes, uncomplicated; N18.2 Chronic kidney disease, stage 2 (mild); E66.9 Obesity, unspecified; R31.9 Hematuria, unspecified; N81.10 Cystocele, unspecified; E83.59 Other disorders of calcium metabolism; N29 Other disorders of kidney and ureter in diseases classified elsewhere; Z90.710 Acquired absence of both cervix and uterus; Z68.35 Body mass index [BMI] 35.0-35.9, adult; Z79.899 Other long term (current) drug therapy
CPT/HCPCS: 36415; 74420; 80053; 81001; 83735; 85025; 87086; 93005; 93010; 99284; A4353; C1758; C1769; J1956; J2270; J2550; J3010

== ENCOUNTER 2019-04-03 13:28 | Outpatient (CLI) | payer OTHER ==
[2019-04-03 15:03] LABS: Hemoglobin 14.5 g/dL (12.0-16.0); Mean Corpuscular HGB CONC 32.3 g/dL (32.0-36.0); Mean Corpuscular Volume 86.6 fL (78.0-98.0); Mean Platelet Volume 8.2 fL (7.4-10.4); Platelet Count 194 thou/uL (130-400); RBC Distribution Width 12.5 % (11.5-14.5); Red Blood Cell (RBC) Count 5.19 mill/uL (4.20-5.40); White Blood Cell (WBC) Count 7.3 thou/uL (4.8-10.8)
[2019-04-03 15:13] LABS: Prothrombin Time 12.7 SEC (12.0-14.7)
[2019-04-03 15:14] LABS: PTT 31.5 SEC (22.9-36.1)
[2019-04-03 15:27] LABS: Anion Gap 13 mmol/L (10-20); BUN (Urea Nitrogen) 11 mg/dL (7.0-18.7); Calc. Creatinine Clearance 0 mL/min (70-130); Calcium 9.9 mg/dL (7.8-10.44); Carbon Dioxide 23 mmol/L (22-29); Chloride 103 mmol/L (98-107); Estimated GFR-MDRD 86; Glucose 84 mg/dL (70-105); Potassium 3.8 mmol/L (3.5-5.1); Sodium 135 mmol/L (136-145)
== END 2019-04-03 13:29 | disposition home or self-care (01) ==
LOC: LABBT 13:28
PROVIDERS: ATTEND Urology
DX: Z01.818 Encounter for other preprocedural examination (principal); N20.0 Calculus of kidney
CPT/HCPCS: 80048; 81001; 85027; 85610; 85730; 87086; 93005; 93010

== ENCOUNTER 2019-04-11 05:57 | Day surgery (SDC) | payer OTHER ==
[2019-04-03 13:55] VITALS: BMI 35.2
[2019-04-11] MEDS ORDERED: Midazolam HCl 2 mg/2 ml Vial ONE (06:57)
[2019-04-11] MEDS ORDERED: Fentanyl 100 MCG/2 ML VIAL ONE ×2 (06:57→09:39)
[2019-04-11] MEDS ORDERED: Levofloxacin 500 mg/D5W 100 ml Premix Bag ONE (07:15)
[2019-04-11] MEDS ORDERED: cefTRIAXone\\ROCEPHIN 1 GM VIAL ONE (07:15)
[2019-04-11] MEDS ORDERED: Sodium Chloride 0.9% 100 ML ONE (07:16)
[2019-04-11] MEDS ORDERED: Iothalamate Meglumine 60% 50 ML VIAL FS ONE (07:57)
[2019-04-11] MEDS ORDERED: Phenazopyridine HCl 97.5 MG TABLET ONE (09:13)
[2019-04-11] MEDS ORDERED: Oxybutynin 5 MG TAB ONE (09:13)
[2019-04-11] MEDS ORDERED: Morphine 2 MG/ML SYRINGE ONE ×2 (10:15→10:26)
--- NOTE | 2019-04-11 10:38 | RAD ---
RETROGRADE PYELOGRAM: Date: 04/11/19 HISTORY: Stent placement. FINDINGS: Preliminary film shows a stent in place. Subsequent contrast injection partially opacifies the collec ting system and there is what appears to be replacement of the stent which appears to be in good posi tion. IMPRESSION: Stent placement. POS: [facility]
[2019-04-11] MEDS ORDERED: HYDROcodone/Acetaminophen 5/325 mg Tablet ONE (10:50)
[2019-04-11] MEDS ORDERED: Ketorolac Tromethamine 30 MG/ML VIAL ONE (11:17)
--- NOTE | 2019-04-11 11:55 | OP ---
DATE OF PROCEDURE: 04/11/2019 PREOPERATIVE DIAGNOSES: A 44-year-old female with history of recurrent kidney stone, left 9-mm left proximal ureteral calculi, multiple bilateral renal calculi consistent with recurrent stone former, left 10-mm lower pole calculi. POSTOPERATIVE DIAGNOSES: A 44-year-old female with history of recurrent kidney stone, left 9-mm left proximal ureteral calculi, multiple bilateral renal calculi consistent with recurrent stone former, left 10-mm lower pole calculi. PROCEDURES PERFORMED: Cystoscopy, left retrograde pyelogram, 6 x 26 double-J ureteral stent exchange, ureteroscopy, laser lithotripsy of multiple calculi, basket extraction of stone fragments. ANESTHESIA: General. COMPLICATIONS: None apparent. DISPOSITION: To recovery room in stable condition. SPECIMENS: Stone for chemical analysis. INDICATIONS FOR PROCEDURE AND HISTORY: A 44-year-old female, who presented with left flank pain. The patient underwent left ureteral stent placement uneventfully and presents today for elective ureteroscopy and laser lithotripsy. Risks and complications and indications were reviewed and she desired to proceed. The patient was taken to the operating room, placed in a dorsal lithotomy position with genital area prepped and draped in the usual surgical sterile fashion. A 21-Niuean cystoscope was utilized for cystoscopy, which demonstrated normal bladder mucosa. The left ureteral stent was removed to the level of the meatus and a 0.35 Sensor wire was placed to the left upper pole. The stent was completely removed. A 10-Niuean dual-lumen access sheath was then passed and a retrograde pyelogram confirmed appropriate placement. The stone appeared to have migrated to the mid pole along with a large left lower pole stone. A 0.38 Super Stiff wire was then placed over the dual-lumen access. The access sheath was then subsequently removed. A 11/13-Niuean x 28 cm navigator was then passed over the rigid wire passed to the level of the proximal ureter with ease. A flexible ureteroscope was utilized to pass into the level of the renal pelvis over guidewire assist. The working wire was then subsequently removed and safety wire remained in situ. Pyeloscopy demonstrated multiple Antwan's plaques consistent with recurrent stone former. The large left proximal ureteral stone had moved into the mid pole and a large left lower pole stone was seen measuring [address] scan. There was a second nidus about 6 mm adjacent to it. Using 200 micron ball-tip laser fiber, we utilized dust setting. We dusted the mid pole stone nidus first, then progressed to the left lower pole stone. Good fragmentation was noted. Most of the stone debris was a dust-like debris and those that were amendable to be basket extracted was extracted from the lower pole. The mid pole stone dispersed nicely into dust-like debris. I surveyed the collecting system, which demonstrated stone fragmented nidus that are too small to basket. They were dust-like debris. Some of the stones in the left lower pole were difficult to engage due to anterior lower pole angle. However, no significant stone debris of concern was noted, fragmented debris probably about 2 to 3 mm remained. We surveyed the ureter, which demonstrated no evidence of ureteral mucosa or trauma. No stone nidus was seen. Navigator was then completely removed and a 6 x 26 double-J ureteral stent was placed into the left kidney without significant issues. Distal tail was left in situ. Bladder was completely emptied and she tolerated the procedure well and transported to the recovery room in stable condition. She will obtain a KUB on Tuesday at 9:00 a.m. and follow up with me subsequently the day after. If no significant stone burden along the course of the ureter, we will proceed with cysto local stent pull on April 19Tuesday. The patient discharged with tramadol 50 mg #30, VESIcare 5 mg #20, ciprofloxacin for course of 10 days, Colace, and Azo p.r.n. Job ID: [id number] [facility]
[2019-04-11] MEDS ORDERED: Lidocaine 1% PF 5 ML VIAL ONE (16:03)
[2019-04-11] MEDS ORDERED: Ondansetron PF 4 MG/2 ML Vial ONE (16:03)
[2019-04-11] MEDS ORDERED: Rocuronium Bromide 10 MG/ML (10ML VIAL) ONE (16:03)
[2019-04-11] MEDS ORDERED: Glycopyrrolate 0.2 MG/ML 5 ML SYRINGE ONE (16:03)
[2019-04-11] MEDS ORDERED: PROPOFOL 200 MG/20 ML VIAL ONE (16:03)
[2019-04-18 08:11] LABS: CA Oxalate Dihydrate 40 % (.); CA Oxalate Monohydrate 45 % (.); CA Phosphate 15 % (.); Color Brown (.); Stone Weight 47.8 mg (.)
== END 2019-04-11 11:50 | disposition home or self-care (01) ==
LOC: SDC 05:57
PROVIDERS: ATTEND Urology
PROC: 0TF78ZZ Fragmentation in Left Ureter, Via Natural or Artificial Opening Endoscopic (ICD-10-PCS; principal; 2019-04-11)
PROC: 0T778DZ Dilation of Left Ureter with Intraluminal Device, Via Natural or Artificial Opening Endoscopic (ICD-10-PCS; principal; 2019-04-11)
DX: N20.2 Calculus of kidney with calculus of ureter (principal); F17.210 Nicotine dependence, cigarettes, uncomplicated; Z79.899 Other long term (current) drug therapy
CPT/HCPCS: 74420; 82365; 88300; C1758; C1769; J0696; J1885; J1956; J2001; J2250; J2270; J2405; J2704; J3010; J3490

== ENCOUNTER 2019-04-18 07:50 | Outpatient (CLI) | payer OTHER ==
--- NOTE | 2019-04-18 09:06 | RAD ---
KUB: INDICATIONS: Renal calculi. COMPARISON: Radiograph from 03/10/2019. FINDINGS: Left ureteral stent is present with the proximal aspect overlying the upper pole left renal shadow an d the distal coil overlying the urinary bladder. Numerous calcific densities are again seen overlyin g the renal shadows bilaterally. There are small calcifications overlying the pelvis, grossly stable . IMPRESSION: 1. Multiple bilateral calcific densities overlying the renal shadows. 2. Left side urinary stent in place. POS: C
== END 2019-04-18 07:51 | disposition home or self-care (01) ==
LOC: RAD 07:50
PROVIDERS: ATTEND Urology
DX: N20.1 Calculus of ureter (principal); N28.89 Other specified disorders of kidney and ureter; Z96.0 Presence of urogenital implants
CPT/HCPCS: 74018

== ENCOUNTER 2019-05-21 14:56 | Outpatient (CLI) | payer OTHER ==
--- NOTE | 2019-05-21 16:14 | MRI ---
MRI Lower Ext Jt Lt WO Con HISTORY: Knee pain. History of previous ACL surgery. COMPARISON: None. FINDINGS: The ACL graft is mildly heterogeneous but appears intact. Posterior cruciate ligament is in tact. There is increased intrameniscal signal change within the posterior horn body junction region of the medial meniscus, this comes close to contacting the inferior meniscal surface but appears to represent internal mucoid degeneration without a definite surface tear. The lateral meniscus has a slightly discoid shape. No tear. The medial and lateral collateral ligaments and iliotibial band regions are normal. Patellar articular cartilage is intact. The medial lateral patellar retinaculum are normal in appeara nce. The quadriceps tendon is unremarkable. Postoperative changes of the patellar tendon are seen. There are some slightly increased signal change deep to the medial patellar retinaculum with prior re present some scar in this region. IMPRESSION: 1. Intact appearing ACL graft. 2. No definite meniscal tear, there is some mucoid degeneration of the medial meniscus. There is a sl ightly discoid shape of the lateral meniscus.
== END 2019-05-21 14:57 | disposition home or self-care (01) ==
LOC: SCSMRI 14:56
PROVIDERS: ATTEND Orthopaedic Surgery
DX: M25.562 Pain in left knee (principal)

== ENCOUNTER 2019-07-09 12:00 | Outpatient (CLI) | payer OTHER ==
--- NOTE | 2019-07-09 14:11 | ULT ---
BILATERAL RENAL ULTRASOUND: Date: 07/09/19 HISTORY: Renal calculi. COMPARISON: 03/24/19 CT study. Review also made of a KUB of 04/18/19. FINDINGS: Real-time imaging of the right and left kidneys performed. These show normal sized kidneys. Right kid gigi measures 12.5 cm and the left kidney measures 14.1 cm in size. It is difficult to definitively ap preciate the renal calculi seen on the previous exams. There does appear to be shadowing related to o ne area in the mid pole region of the right kidney. No obstruction of either kidney. Bladder region a ppears unremarkable. IMPRESSION: No signs of any cyst or mass. It is very difficult to definitely appreciate any of the renal calculi. There does appear to be one area of shadowing in the mid pole region of the right kidney. No obstruc tion. POS: [facility]
== END 2019-07-09 12:01 | disposition home or self-care (01) ==
LOC: BICULT 12:00
PROVIDERS: ATTEND Urology
DX: N20.0 Calculus of kidney (principal)
CPT/HCPCS: 76770

== ENCOUNTER 2019-07-11 09:01 | Day surgery (SDC) | payer OTHER ==
[2019-07-11] MEDS ORDERED: HYDROmorphone 0.5 MG/0.5 ML SYRINGE ONE ×2 (09:34→10:52)
[2019-07-11] MEDS ORDERED: PROPOFOL 20 ML ONE (09:39)
[2019-07-11 09:52] LABS: #Eosinphils 0.2 thou/uL (0.0-0.7); #Lymphocytes 1.4 thou/uL (1.20-3.40); #Monocytes 0.5 thou/uL (0.11-0.59); #Neutrophils 5.4 thou/uL (1.40-6.50); %Basophils 0.6 % (0.0-1.0); %Eosinophils 2.2 % (0.0-10.0); %Lymphocytes 18.7 % (21.0-51.0); %Monocytes 6.4 % (0.0-10.0); %Neutrophils 72.1 % (42.0-75.0); Hemoglobin 14.4 g/dL (12.0-16.0); Mean Corpuscular Volume 87.9 fL (78.0-98.0); Mean Platelet Volume 8.6 fL (7.4-10.4); Platelet Count 160 thou/uL (130-400); RBC Distribution Width 12.8 % (11.5-14.5); Red Blood Cell (RBC) Count 4.99 mill/uL (4.20-5.40); White Blood Cell (WBC) Count 7.4 thou/uL (4.8-10.8)
[2019-07-11] MEDS ORDERED: Ondansetron PF 4 MG/2 ML Vial ONE (10:02)
[2019-07-11 10:09] LABS: Anion Gap 10 mmol/L (10-20); BUN (Urea Nitrogen) 9 mg/dL (7.0-18.7); Calc. Creatinine Clearance 0 mL/min (70-130); Calcium 9.3 mg/dL (7.8-10.44); Carbon Dioxide 28 mmol/L (22-29); Chloride 107 mmol/L (98-107); Estimated GFR-MDRD Greater than 90; Glucose 87 mg/dL (70-105); Potassium 3.7 mmol/L (3.5-5.1); Sodium 141 mmol/L (136-145)
[2019-07-11] MEDS ORDERED: Fentanyl 100 MCG/2 ML VIAL ONE ×2 (11:47→12:09)
[2019-07-11] MEDS ORDERED: HYDROcodone/Acetaminophen 5/325 mg Tablet ONE (13:58)
--- NOTE | 2019-07-11 15:59 | OP ---
DATE OF PROCEDURE: 07/11/2019 PREOPERATIVE DIAGNOSIS: Left knee pain with believed unstable chondral flaps as well as possible meniscal tear of the lateral meniscus. POSTOPERATIVE DIAGNOSES: 1. Copious amount of scar tissue, which had fibrosed the anterior portion of the knee and fat pad and captured the patella. 2. 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 3. Degenerative lateral meniscal tear. PROCEDURES PERFORMED: 1. Left knee arthroscopy with significant amount of debridement and shaving. 2. Partial lateral meniscectomy. HISTOLOGIC TECHNICIAN: None. ESTIMATED BLOOD LOSS: Minimal. COMPLICATIONS: None. ANESTHESIA: She had a general anesthetic as well as preoperative block. DISPOSITION: She went to recovery room in stable condition. INDICATIONS: This is a 44-year-old female, who comes in complaining of significant pain and stiffness in the knee. At this time, she opted to have surgery. DESCRIPTION OF PROCEDURE: After all appropriate consent forms were explained and signed, she was taken back to the operating room and at this time was given general anesthetic. Once anesthesia was appropriate, tourniquet was placed on the left thigh and leg was placed in arthroscopic leg bond. The limb was then prepped and draped in standard surgical fashion. The limb was then exsanguinated and tourniquet was taken up to 300 mmHg. Inferolateral portal was established. Scope was placed into the knee joint. It was very difficult to establish a medial portal as there was a copious amount of scar tissue in the anterior compartment posterior to patellar tendon. This was very carefully done as we basically switched our camera to the medial portal, and through the medial portal, we were able to establish our lateral portal, and from here using a shaver and SERFAS energy, we were able to slowly, but safely removed the scar tissue to open up the anterior compartment of the knee joint. Once we were able to visualize the knee, the graft to the ACL was found to be intact. This actually did look a little bit surprisingly better than what it did on her MRI scan. Her PCL was intact. The ACL ligament was left alone. The medial compartment showed the medial femur to have some significant unstable chondral flaps. Any unstable chondral flaps were debrided gently with mechanical shaver and biter back to a stable base, leaving all good cartilage alone. There was no full-thickness defects noted. The medial meniscus was probed and found to be intact. The lateral compartment looked much different than the medial compartment and that the tibial plateau, femur, and meniscus had some significant what appeared to be gouty changes or pseudogout changes of the meniscus itself. The meniscus was found to have a tear, it was very hard in nature. A partial meniscectomy was performed using meniscal biter and shaver back to a stable base. The tibial plateau had some grade 2 changes and the femur overall was in good condition. The gutters were swept through. There were no loose bodies, but there were osteophytes growing on the lateral medial femur. The patellofemoral joint showed a large at the trochlea to have what was believed to be grade 4 changes with some fibrocartilage covering the barrier area. There was some mild unstable chondral flaps, which were removed. The patella itself was overall in good condition. No loose bodies were noted in the suprapatellar pouch. At this time, I went through the knee one more time, looking for any loose bodies or any other thing is needed for treatment, and there was none. Therefore, scope was removed. Knee was drained. Portal was closed with simple nylon stitch. Bulky sterile dressing was applied, and at this time , the tourniquet was let down. Toes pinked up nicely. The patient was awakened. She was taken to recovery room in stable condition. All counts were correct at the end of the case. She did receive preoperative IV antibiotics. Job ID: [id number] [facility]
== END 2019-07-11 14:10 | disposition home or self-care (01) ==
LOC: SDC 09:01
PROVIDERS: ATTEND Orthopaedic Surgery
PROC: 0SBD4ZZ Excision of Left Knee Joint, Percutaneous Endoscopic Approach (ICD-10-PCS; principal; 2019-07-11)
DX: M23.301 Other meniscus derangements, unspecified lateral meniscus, left knee (principal); M23.8X2 Other internal derangements of left knee; M17.0 Bilateral primary osteoarthritis of knee; F17.210 Nicotine dependence, cigarettes, uncomplicated; Z88.1 Allergy status to other antibiotic agents; Z98.890 Other specified postprocedural states
CPT/HCPCS: 80048; 85025; J0690; J1170; J2405; J2704; J3010

== ENCOUNTER 2019-07-24 13:03 | Outpatient (CLI) | payer OTHER ==
--- NOTE | 2019-07-24 13:31 | ULT ---
EXAM: Left lower extremity venous Doppler US HISTORY: left lower extremity edema and pain FINDINGS: Grayscale, color-flow, Doppler evaluation, spectral analysis of the left lower extremity venous struc tures is performed with 2-D imaging. The left common femoral, superficial femoral, popliteal, posterior tibial, proximal greater saphenous and profunda femoral veins are imaged. There is normal luminal compressibility, flow, and augmentation the visualized deep venous structures of the left lower extremity. IMPRESSION: No evidence of a deep vein thrombosis in the left lower extremity.
== END 2019-07-24 13:04 | disposition home or self-care (01) ==
LOC: BICULT 13:03
PROVIDERS: ATTEND Orthopaedic Surgery
DX: M25.562 Pain in left knee (principal); M79.89 Other specified soft tissue disorders

== ENCOUNTER 2020-01-28 16:36 | Emergency (ER) | payer OTHER ==
[2020-01-28 18:31] LABS: #Eosinphils 0.1 thou/uL (0.0-0.7); #Lymphocytes 1.5 thou/uL (1.20-3.40); #Monocytes 0.4 thou/uL (0.11-0.59); %Basophils 0.1 % (0.0-1.0); %Eosinophils 0.8 % (0.0-10.0); %Lymphocytes 13.4 % (21.0-51.0); %Monocytes 3.2 % (0.0-10.0); %Neutrophils 82.4 % (42.0-75.0); Hemoglobin 14.6 g/dL (12.0-16.0); Mean Corpuscular HGB CONC 32.4 g/dL (32.0-36.0); Mean Corpuscular Hemoglobin 28.1 pg (27.0-31.0); Mean Corpuscular Volume 86.7 fL (78.0-98.0); Mean Platelet Volume 8.8 fL (7.4-10.4); Platelet Count 214 thou/uL (130-400); RBC Distribution Width 12.8 % (11.5-14.5); Red Blood Cell (RBC) Count 5.19 mill/uL (4.20-5.40); White Blood Cell (WBC) Count 10.9 thou/uL (4.8-10.8)
[2020-01-28 18:54] LABS: ALT (SGPT) 17 U/L (8-55); AST (SGOT) 16 U/L (5-34); Albumin 4.3 g/dL (3.5-5.0); Alkaline Phosphatase 70 U/L (40-110); Anion Gap 13 mmol/L (10-20); BUN (Urea Nitrogen) 8 mg/dL (7.0-18.7); Bilirubin, Total 0.3 mg/dL (0.2-1.2); CK (CPK) 56 U/L (29-168); Calc. Creatinine Clearance 0 mL/min (70-130); Calcium 9.1 mg/dL (7.8-10.44); Carbon Dioxide 24 mmol/L (22-29); Chloride 104 mmol/L (98-107); Estimated GFR-MDRD 82; Globulin 2.8 g/dL (2.4-3.5); Glucose 92 mg/dL (70-105); Potassium 3.8 mmol/L (3.5-5.1); Protein, Total 7.1 g/dL (6.0-8.3); Sodium 137 mmol/L (136-145)
--- NOTE | 2020-01-28 19:04 | RAD ---
Chest AP view INDICATION: Chest pain COMPARISON: April 24, 2018 FINDINGS: Lungs: The lungs are clear Cardiac silhouette: The cardiomediastinal silhouette appears within normal limits. Pulmonary vasculature: Normal Pleural spaces: No pleural effusion or pneumothorax is demonstrated. Upper abdomen: No abnormality seen. Osseous structures: No acute osseous abnormality. Additional findings: None. IMPRESSION: No acute cardiopulmonary abnormality.
[2020-01-28 21:37] LABS: Troponin I 0.023 ng/mL (< 0.028)
--- NOTE | 2020-02-02 13:03 | EKG ---
Test Reason : Blood Pressure : / mmHG Vent. Rate : 072 BPM Atrial Rate : 072 BPM P-R Int : 160 ms QRS Dur : 078 ms QT Int : 422 ms P-R-T Axes : 010 041 054 degrees QTc Int : 462 ms Normal sinus rhythm Normal ECG Confirmed by RM MONTGOMERY DO ([id number]), editor magazine TAVARES EMANUEL ([id number]) on 02/02/2020 1:03:11 PM Referred By: Confirmed By:RM MONTGOMERY DO
== END 2020-01-28 22:05 | disposition home or self-care (01) ==
LOC: ERS 16:36
DX: R07.89 Other chest pain (principal); F32.9 Major depressive disorder, single episode, unspecified; F17.210 Nicotine dependence, cigarettes, uncomplicated; Z79.899 Other long term (current) drug therapy
CPT/HCPCS: 36415; 71045; 80053; 82550; 84484; 85025; 93005

== ENCOUNTER 2020-11-21 13:17 | Outpatient (CLI) | payer BC ==
[2020-11-21 15:04] LABS: Hemoglobin 13.3 g/dL (12.0-15.5); Mean Corpuscular HGB CONC 31.5 g/dL (32.0-36.0); Mean Corpuscular Hemoglobin 27.7 pg (27.0-33.0); Mean Corpuscular Volume 87.7 fl (81.6-98.3); Mean Platelet Volume 11.1 fl (7.4-10.4); Platelet Count 208 10x3/uL (150-450); RBC Distribution Width 13.8 % (11.5-14.5); Red Blood Cell (RBC) Count 4.81 10x6/uL (3.90-5.03); White Blood Cell (WBC) Count 7.2 10x3/uL (3.5-10.5)
[2020-11-21 15:10] LABS: BHCG - Serum Negative (NEGATIVE); Pregs Control Background? CLEAR/WHITE (CLR/WHITE); Pregs Control Bar Appear? YES (CONTROL BAR)
[2020-11-21 15:12] LABS: Anion Gap 12 mmol/L (10-20); BUN (Urea Nitrogen) 11 mg/dL (7.0-18.7); Calc. Creatinine Clearance 0 mL/min (70-130); Calcium 9.2 mg/dL (7.8-10.44); Carbon Dioxide 27 mmol/L (22-29); Chloride 103 mmol/L (98-107); Glucose 71 mg/dL (70-105); Potassium 3.9 mmol/L (3.5-5.1); Sodium 138 mmol/L (136-145)
[2020-11-21 15:21] LABS: INR-International Normal Ratio 0.9; PTT 27.1 sec (22.0-33.0); Prothrombin Time 10.4 sec (9.5-12.1)
[2020-11-22 01:56] LABS: SARS-CoV-2 PCR by NAA Not Detected (NotDetected)
== END 2020-11-21 13:18 | disposition home or self-care (01) ==
LOC: LABBT 13:17
PROVIDERS: ATTEND Urology
DX: Z01.818 Encounter for other preprocedural examination (principal); N20.2 Calculus of kidney with calculus of ureter; R21 Rash and other nonspecific skin eruption; N81.11 Cystocele, midline; Z72.0 Tobacco use; Z20.822 Contact with and (suspected) exposure to COVID-19
CPT/HCPCS: 80048; 84703; 85027; 85610; 85730; 87635; 93005; 93010; U0003; U0005

== ENCOUNTER 2020-11-26 06:41 | Day surgery (SDC) | payer BC ==
[2020-11-25 09:25] VITALS: BMI 36.7
[2020-11-26] MEDS ORDERED: Sodium Chloride 0.9% 100 ML ONE (08:32)
[2020-11-26] MEDS ORDERED: cefTRIAXone\\ROCEPHIN 2 GM VIAL ONE (08:32)
[2020-11-26] MEDS ORDERED: Iothalamate Meglumine 60% 50 ML VIAL FS ONE (08:51)
[2020-11-26] MEDS ORDERED: Midazolam HCl 2 mg/2 ml Vial ONE (08:55)
[2020-11-26] MEDS ORDERED: Fentanyl 100 MCG/2 ML VIAL ONE ×2 (08:55→10:03)
[2020-11-26] MEDS ORDERED: SUGAMMADEX SODIUM 500 MG/5 ML VIAL ONE (08:55)
[2020-11-26] MEDS ORDERED: Famotidine/PF 20 mg/2ml Vial ONE (08:55)
[2020-11-26] MEDS ORDERED: PROPOFOL 200 MG/20 ML VIAL ONE (08:57)
[2020-11-26] MEDS ORDERED: Ondansetron PF 4 MG/2 ML Vial ONE (08:57)
[2020-11-26] MEDS ORDERED: Rocuronium Bromide 10 MG/ML (10ML VIAL) ONE (08:57)
[2020-11-26] MEDS ORDERED: Metoclopramide HCl 10 MG/2 ML VIAL ONE (08:57)
[2020-11-26] MEDS ORDERED: Lidocaine 1% PF 5 ML VIAL ONE (08:57)
[2020-11-26] MEDS ORDERED: Dexamethasone 20 MG/5 ML VIAL ONE (08:57)
[2020-11-26] MEDS ORDERED: Promethazine HCl 25 MG/ML VIAL ONE (10:03)
[2020-11-26] MEDS ORDERED: Phenazopyridine HCl 100 MG TAB ONE (11:34)
[2020-11-26] MEDS ORDERED: Oxybutynin 5 MG TAB ONE (11:34)
[2020-11-26] MEDS ORDERED: HYDROcodone/Acetaminophen 5/325 mg Tablet ONE (12:18)
[2020-12-02 20:12] LABS: CA Oxalate Dihydrate 40 % (.); CA Oxalate Monohydrate 20 % (.); Color Brown (.); Stone Weight 7 mg (.)
== END 2020-11-26 12:55 | disposition home or self-care (01) ==
LOC: SDC 06:41
PROVIDERS: ATTEND Urology
PROC: 0TC38ZZ Extirpation of Matter from Right Kidney Pelvis, Via Natural or Artificial Opening Endoscopic (ICD-10-PCS; principal; 2020-11-26)
PROC: 0T768DZ Dilation of Right Ureter with Intraluminal Device, Via Natural or Artificial Opening Endoscopic (ICD-10-PCS; principal; 2020-11-26)
DX: N13.2 Hydronephrosis with renal and ureteral calculous obstruction (principal); N81.11 Cystocele, midline; M17.0 Bilateral primary osteoarthritis of knee; F17.210 Nicotine dependence, cigarettes, uncomplicated; Z79.899 Other long term (current) drug therapy; Z88.1 Allergy status to other antibiotic agents
CPT/HCPCS: 74018; 74420; 82365; 88300; J0696; J1100; J2250; J2405; J2550; J2704; J2765; J3010; J3490; Q9961; S0028

== ENCOUNTER 2021-03-20 13:31 | Outpatient (CLI) | payer BC | END 2021-03-20 13:32 | disposition home or self-care (01) | LOC: BICULT 13:31 | PROVIDERS: ATTEND Urology | DX: N20.0 Calculus of kidney (principal); N28.89 Other specified disorders of kidney and ureter | CPT/HCPCS: 74018; 76770 ==

== ENCOUNTER 2021-05-26 08:29 | Emergency (ER) | payer BC | END 2021-05-26 09:56 | disposition home or self-care (01) | LOC: ERS 08:29 | DX: R04.2 Hemoptysis (principal); J20.9 Acute bronchitis, unspecified; J44.9 Chronic obstructive pulmonary disease, unspecified; F17.210 Nicotine dependence, cigarettes, uncomplicated | CPT/HCPCS: 71045 ==

== ENCOUNTER 2021-07-29 12:48 | Outpatient (CLI) | payer BC ==
[2021-07-29 14:11] LABS: Mean Corpuscular HGB CONC 31.2 g/dL (32.0-36.0); Mean Corpuscular Hemoglobin 27.8 pg (27.0-33.0); Mean Corpuscular Volume 89.1 fl (81.6-98.3); Mean Platelet Volume 10.8 fl (7.4-10.4); Platelet Count 220 10x3/uL (150-450); RBC Distribution Width 13.5 % (11.5-14.5); Red Blood Cell (RBC) Count 5.04 10x6/uL (3.90-5.03); White Blood Cell (WBC) Count 8.1 10x3/uL (3.5-10.5)
[2021-07-29 14:21] LABS: PTT 27.2 sec (22.0-33.0); Prothrombin Time 10.7 sec (9.5-12.1)
[2021-07-29 14:23] LABS: Anion Gap 13 mmol/L (10-20); BUN (Urea Nitrogen) 13 mg/dL (7.0-18.7); Calc. Creatinine Clearance 0 mL/min (70-130); Calcium 9.6 mg/dL (7.8-10.44); Carbon Dioxide 29 mmol/L (22-29); Chloride 104 mmol/L (98-107); Glucose 69 mg/dL (70-105); Sodium 142 mmol/L (136-145)
[2021-07-30 01:03] LABS: SARS-CoV-2 PCR by NAA Not Detected (NotDetected)
== END 2021-07-29 12:49 | disposition home or self-care (01) ==
LOC: LABBT 12:48
PROVIDERS: ATTEND Urology
DX: Z01.818 Encounter for other preprocedural examination (principal); Z20.822 Contact with and (suspected) exposure to COVID-19
CPT/HCPCS: 80048; 85027; 85610; 85730; 93005; 93010; U0003; U0005

== ENCOUNTER 2021-08-03 05:56 | Day surgery (SDC) | payer BC ==
[2021-07-31 09:54] VITALS: BMI 37.2
[2021-08-03] MEDS ORDERED: Sodium Chloride 0.9% 100 ML ONE (06:25)
[2021-08-03] MEDS ORDERED: cefTRIAXone\\ROCEPHIN 2 GM VIAL ONE (06:25)
[2021-08-03] MEDS ORDERED: Iothalamate Meglumine 60% 50 ML VIAL FS ONE (08:40)
[2021-08-03] MEDS ORDERED: Fentanyl 100 MCG/2 ML VIAL ONE (08:43)
[2021-08-03] MEDS ORDERED: Midazolam HCl 2 mg/2 ml Vial ONE (08:43)
[2021-08-03] MEDS ORDERED: Lidocaine 1% PF 5 ML VIAL ONE (09:05)
[2021-08-03] MEDS ORDERED: Ondansetron PF 4 MG/2 ML Vial ONE (09:05)
[2021-08-03] MEDS ORDERED: Rocuronium Bromide 10 MG/ML (10ML VIAL) ONE (09:05)
[2021-08-03] MEDS ORDERED: PROPOFOL 200 MG/20 ML VIAL ONE (09:05)
[2021-08-03] MEDS ORDERED: Glycopyrrolate 0.2 MG/ML 5 ML SYRINGE ONE (09:05)
[2021-08-03] MEDS ORDERED: Ketorolac Tromethamine 30 MG/ML VIAL ONE (09:05)
[2021-08-03] MEDS ORDERED: Oxybutynin 5 MG TAB ONE (10:54)
[2021-08-03] MEDS ORDERED: Phenazopyridine HCl 100 MG TAB ONE (10:54)
[2021-08-03] MEDS ORDERED: HYDROcodone/Acetaminophen 5/325 mg Tablet ONE (12:04)
[2021-08-06 17:36] LABS: CA Hydrogen Phos 80 % (.); CA Oxalate Dihydrate 10 % (.); CA Oxalate Monohydrate 10 % (.); Color Tan (.); Stone Weight 206 mg (.)
== END 2021-08-03 13:35 | disposition home or self-care (01) ==
LOC: SDC 05:56
PROVIDERS: ATTEND Urology
PROC: 0TC48ZZ Extirpation of Matter from Left Kidney Pelvis, Via Natural or Artificial Opening Endoscopic (ICD-10-PCS; principal; 2021-08-03)
PROC: 0T778DZ Dilation of Left Ureter with Intraluminal Device, Via Natural or Artificial Opening Endoscopic (ICD-10-PCS; principal; 2021-08-03)
DX: N20.0 Calculus of kidney (principal); F17.210 Nicotine dependence, cigarettes, uncomplicated; M17.9 Osteoarthritis of knee, unspecified; E66.01 Morbid (severe) obesity due to excess calories; Z68.37 Body mass index [BMI] 37.0-37.9, adult; Z79.899 Other long term (current) drug therapy; Z88.1 Allergy status to other antibiotic agents
CPT/HCPCS: 74018; 74420; 82365; 88300; C2617; J0696; J1885; J2250; J2405; J2704; J3010; J3490; Q9961-U8

== ENCOUNTER 2021-08-10 11:11 | Outpatient (CLI) | payer BC | END 2021-08-10 11:12 | disposition home or self-care (01) | LOC: BICBD 11:11 | PROVIDERS: ATTEND Urology | DX: N20.0 Calculus of kidney (principal) | CPT/HCPCS: 74018 ==

== ENCOUNTER 2022-12-10 12:07 | Outpatient (CLI) | payer BC ==
[2022-12-10 13:18] LABS: Hemoglobin 13.6 g/dL (12.0-15.5); Mean Corpuscular HGB CONC 30.8 g/dL (32.0-36.0); Mean Corpuscular Hemoglobin 27.6 pg (27.0-33.0); Mean Corpuscular Volume 89.5 fl (81.6-98.3); Mean Platelet Volume 10.5 fl (7.4-10.4); Platelet Count 203 10x3/uL (150-450); RBC Distribution Width 13.9 % (11.5-14.5); Red Blood Cell (RBC) Count 4.93 10x6/uL (3.90-5.03); White Blood Cell (WBC) Count 6.7 10x3/uL (3.5-10.5)
[2022-12-10 13:30] LABS: PTT 28.8 sec (22.0-33.0); Prothrombin Time 10.4 sec (9.5-12.1)
[2022-12-10 13:31] LABS: Anion Gap 13 mmol/L (10-20); BUN (Urea Nitrogen) 10 mg/dL (7.0-18.7); Calc. Creatinine Clearance 0 mL/min (70-130); Calcium 9.1 mg/dL (7.8-10.44); Carbon Dioxide 26 mmol/L (22-29); Chloride 107 mmol/L (98-107); Estimated GFR 100; Glucose 90 mg/dL (70-105); Potassium 4.2 mmol/L (3.5-5.1); Sodium 142 mmol/L (136-145)
== END 2022-12-10 12:08 | disposition home or self-care (01) ==
LOC: LABBT 12:07
PROVIDERS: ATTEND Urology
DX: Z01.812 Encounter for preprocedural laboratory examination (principal); N20.1 Calculus of ureter; N20.0 Calculus of kidney; N81.11 Cystocele, midline; N29 Other disorders of kidney and ureter in diseases classified elsewhere; Z72.0 Tobacco use
CPT/HCPCS: 80048; 85027; 85610; 85730; 93005; 93010

== ENCOUNTER 2022-12-13 08:04 | Day surgery (SDC) | payer BC ==
[2022-12-10 13:18] VITALS: BMI 38.4
[2022-12-13] MEDS ORDERED: Iopamidol 30 ML ONE (09:18)
[2022-12-13] MEDS ORDERED: cefTRIAXone (ROCEPHIN) 2 GM VIAL ONE (09:25)
[2022-12-13] MEDS ORDERED: Sodium Chloride 0.9% 100 ML ONE (09:26)
[2022-12-13] MEDS ORDERED: fentaNYL PF 100 MCG/2 ML SYRINGE ONE (09:36)
[2022-12-13] MEDS ORDERED: Ketorolac Tromethamine 30 MG/ML VIAL ONE (09:43)
[2022-12-13] MEDS ORDERED: Rocuronium Bromide 10 MG/ML (10ML VIAL) ONE (09:43)
[2022-12-13] MEDS ORDERED: NEOSTIGMINE 3 MG/3 ML SYR 3 MG/3 ML SYRINGE ONE (09:43)
[2022-12-13] MEDS ORDERED: PROPOFOL 200 MG/20 ML VIAL ONE (09:43)
[2022-12-13] MEDS ORDERED: Glycopyrrolate 0.2 MG/ML 5 ML SYRINGE ONE (09:43)
[2022-12-13] MEDS ORDERED: Lidocaine 1% PF 5 ML VIAL ONE (09:43)
[2022-12-13] MEDS ORDERED: Ondansetron PF 4 MG/2 ML Vial ONE (09:43)
[2022-12-13] MEDS ORDERED: hydrALAZINE 20 MG/ML VIAL ONE (10:45)
[2022-12-13] MEDS ORDERED: fentaNYL 50 mcg/mL 1 mL Vial ONE ×2 (10:48→10:59)
[2022-12-13] MEDS ORDERED: HYDROmorphone 0.5 MG/0.5 ML SYRINGE ONE ×2 (11:02→11:29)
[2022-12-13] MEDS ORDERED: Phenazopyridine HCl 100 MG TAB ONE (11:05)
[2022-12-13] MEDS ORDERED: Oxybutynin 5 MG TAB ONE (11:05)
[2022-12-13] MEDS ORDERED: Promethazine HCl 25 MG/ML VIAL ONE (11:08)
== END 2022-12-13 12:38 | disposition home or self-care (01) ==
LOC: SDC 08:04
PROVIDERS: ATTEND Urology
PROC: 0T778DZ Dilation of Left Ureter with Intraluminal Device, Via Natural or Artificial Opening Endoscopic (ICD-10-PCS; principal; 2022-12-13)
PROC: 0TC18ZZ Extirpation of Matter from Left Kidney, Via Natural or Artificial Opening Endoscopic (ICD-10-PCS; principal; 2022-12-13)
PROC: 0TC78ZZ Extirpation of Matter from Left Ureter, Via Natural or Artificial Opening Endoscopic (ICD-10-PCS; principal; 2022-12-13)
DX: N13.2 Hydronephrosis with renal and ureteral calculous obstruction (principal); N13.4 Hydroureter; I25.10 Atherosclerotic heart disease of native coronary artery without angina pectoris; F17.210 Nicotine dependence, cigarettes, uncomplicated; M17.0 Bilateral primary osteoarthritis of knee; Z79.899 Other long term (current) drug therapy; Z88.1 Allergy status to other antibiotic agents
CPT/HCPCS: 74420; 82365; 88300; C1747; C1769; C2617; J0360; J0696; J1170; J1885; J2405; J2550; J2704; J3010; J3490; Q9967